=== PATIENT | female | born 1985 | race Caucasian/White ===

== ENCOUNTER → 2017-02-11 | Outpatient (CLI) | payer MEDICAID, OTHER ==
[2017-02-11 10:06] LABS: BASO % 0.4 % (0.0-1.0); EOS # 0.1 K/mm3 (0.0-0.50); LARGE UNSTAINED CELL # 0.1 K/mm3 (0.0-0.4); LARGE UNSTAINED CELL % 1.1 % (0.0-4.0); LYMPH # 1.6 K/mm3 (1.5-4.5); LYMPH % 15.8 % (24.0-44.0); MEAN CORPUSCULAR HEMOGLOBIN 32.1 pg (27.0-33.0); MEAN CORPUSCULAR HGB CONC 33.7 g/dl (32.0-36.5); MEAN CORPUSCULAR VOLUME 95.3 fl (80.0-96.0); MONO # 0.5 K/mm3 (0.0-0.8); MONO % 4.9 % (0.0-5.0); NEUTROPHILS # 7.2 K/mm3 (1.8-7.7); NEUTROPHILS % 76.8 % (36.0-66.0); PLATELET COUNT, AUTOMATED 276 k/mm3 (150-450); RED CELL DISTRIBUTION WIDTH 12.2 % (11.5-14.5); WHITE BLOOD COUNT 9.4 K/mm3 (4.0-10.0)
[2017-02-11 11:12] LABS: HBsAg Prenatal NEGATIVE (NEGATIVE)
== END ==
LOC: M LAB 09:28
PROVIDERS: ATTEND Advanced Practice Midwife
DX: Z34.81 Encounter for supervision of other normal pregnancy, first trimester (principal)

== ENCOUNTER → 2017-04-03 | Outpatient (CLI) | payer OTHER | LOC: M LAB 10:07 | PROVIDERS: ATTEND Obstetrics & Gynecology | DX: D64.9 Anemia, unspecified (principal) ==

== ENCOUNTER → 2017-04-16 | Outpatient (CLI) | payer OTHER ==
--- NOTE | 2017-04-17 06:21 | REP ---
Clinical: Anatomical evaluation. Comparison: None . Findings: Examination demonstrates a single live intrauterine in cephalic presentation. motion is identified by technologist. Placenta is noted anteriorly and grade zero without evidence for placenta previa or abruption. Placental lakes are identified along with suspected posterior succenturiate lobe. Amniotic fluid volume is normal. Cervix measures 4.0 cm in length and appears closed. No evidence for nuchal cord. Gestational age by LMP 18 weeks 6 days with JACKELYN 09/11/2017 . Gestational age by current measurements 18 weeks 5-day with JACKELYN 22 18 . FHR equals 128 beats per minute. BPD 4.2 cm 18 weeks 5 days HC 15.9 cm 18 weeks 5 days AC 13.4 cm 18 weeks 6 days FL 2.8 cm 18 weeks 4 days HL 2.7 cm 18 weeks 5 days HC/AC ratio 1.18 Estimated weight 254 grams ( 40th percentile). Anatomical assessment demonstrates normal structures including cranium, choroid plexus, cavum, cerebellum/posterior fossa, facial features, lungs, four-chamber heart, diaphragm, stomach, cord insertion, kidneys/bladder, spine, and extremities. Limited evaluation of the cardiac ventricular outflow tracts noted along with single umbilical artery. Impression: 1. Single live intrauterine in cephalic presentation demonstrating appropriate interval growth. 2. Placenta demonstrates multiple placental lakes and a suspected posterior succenturiate lobe but remains grade zero and without placenta previa. 3. Limited evaluation of the cardiac ventricular outflow tracts and single umbilical artery noted. Signed by Norris Martinez MD 04/17/2017 06:12 A
== END ==
LOC: M RAD 09:35
PROVIDERS: ATTEND Obstetrics & Gynecology
DX: Z36 Encounter for antenatal screening of mother (principal)

== ENCOUNTER → 2017-05-02 | Outpatient (CLI) | payer OTHER ==
--- NOTE | 2017-05-02 13:14 | REP ---
Obstetric sonography: History: Supervision of , followup anatomy. Comparison sonography April 16, 2017. Findings: Scanning through the gravid uterus demonstrates a viable single intrauterine gestation in a breech lie. motion is observed and heart rate is recorded at 142 beats per minute. An anterior grade 0 placenta is seen without evidence of previa. There appears to be a posterior succenturiate lobe . The amniotic fluid is subjectively normal. Closed cervical length measured transabdominally is 3.8 cm. No extrauterine abnormalities observed. There has been appropriate interval growth in the fetus. The umbilical cord is seen draping across the neck. A single umbilical artery umbilical cord is noted. No anomaly is seen. The following anatomic structures are identified and felt to be sonographically unremarkable: cranium, choroid plexus, cavum, cerebellum and posterior fossa, nuchal fold, face and profile, lungs, four-chamber heart, left and right ventricular outflow tract views, diaphragm, left-sided stomach, abdominal wall cord insertion, kidneys and bladder, spine, upper and lower extremities. Biometry chart: BPD 4.9 cm = 20 weeks 6 days Head circumference 19.0 cm = 21 weeks 2 days Abdominal circumference 16.6 cm = 21 weeks 4 days Femur length 3.4 cm = 20 weeks 5 days Humeral length 3.3 cm = 21 weeks 1 day Cerebellar diameter 2.3 cm = 21 weeks 3 days HC/AC ratio normal 1.14. Cephalic index normal 0.70. Estimated weight 407 grams, 0 pounds 14 ounces, 50th percentile for 21 weeks 1 day. Impression: Viable single intrauterine gestation at 21 weeks 1 day by today's composite sonographic criteria. Expected gestational age estimate based on prior sonography is 21 weeks 0 days. JACKELYN by prior sonography September 12, 2017. Single artery umbilical cord again noted. No anomalies seen. Signed by Yoan Guan MD 05/02/2017 05:10 P
== END ==
LOC: M RAD 08:59
PROVIDERS: ATTEND Obstetrics & Gynecology
DX: Z36.2 Encounter for other antenatal screening follow-up (principal)

== ENCOUNTER → 2017-05-16 | Outpatient (CLI) | payer OTHER ==
[2017-05-16 12:33] LABS: MEAN CORPUSCULAR HEMOGLOBIN 31.7 pg (27.0-33.0); MEAN CORPUSCULAR HGB CONC 33.6 g/dl (32.0-36.5); MEAN CORPUSCULAR VOLUME 94.2 fl (80.0-96.0); PLATELET COUNT, AUTOMATED 248 10^3/uL (150-450); RED CELL DISTRIBUTION WIDTH 11.8 % (11.5-14.5); WHITE BLOOD COUNT 14.5 10^3/uL (4.0-10.0)
== END ==
LOC: M LAB 10:50
PROVIDERS: ATTEND Obstetrics & Gynecology
DX: Z34.82 Encounter for supervision of other normal pregnancy, second trimester (principal)

== ENCOUNTER → 2017-05-30 | Outpatient (REF) | payer OTHER | LOC: M SFHCPLAZ 12:03 | PROVIDERS: ATTEND Nurse Practitioner Family | DX: J02.9 Acute pharyngitis, unspecified (principal) ==

== ENCOUNTER → 2017-07-17 | Outpatient (CLI) | payer OTHER ==
--- NOTE | 2017-07-17 10:07 | REP ---
Clinical: Growth evaluation. Comparison: 05/02/2017 . Findings: Examination demonstrates a single live intrauterine in cephalic presentation. motion is identified by technologist. Placenta is noted anteriorly and grade one without evidence for placenta previa or abruption. Amniotic fluid volume is normal. Gestational age by LMP 32 weeks 0 days with JACKELYN 09/11/2018 . Gestational age by current measurements 31 weeks 6 days with JACKELYN 09/12/2017 . FHR equals 133 beats per minute. BPD 8.2 cm 32 weeks 6 days HC 29.4 cm 32 weeks 4 days AC 26.9 cm 31 weeks 0 days FL 6.2 cm 32 weeks 2 days HL 5.2 cm 30 weeks 4 days HC/AC ratio 1.09 Estimated weight 1822 grams ( 37th percentile). Amniotic fluid index: 11.2 cm (a 0.6 - 24.2). Umbilical cord SD ratio: 2.67 (2.50 - 3.50). Impression: Single live intrauterine in cephalic presentation demonstrating appropriate interval growth. Signed by Norris Martinez MD 07/17/2017 09:59 A
== END ==
LOC: M RAD 09:04
PROVIDERS: ATTEND Advanced Practice Midwife
DX: Q27.0 Congenital absence and hypoplasia of umbilical artery (principal); Z3A.32 32 weeks gestation of pregnancy

== ENCOUNTER → 2017-08-07 | Outpatient (CLI) | payer OTHER | LOC: M RAD 09:04 | DX: Z36.89 Encounter for other specified antenatal screening (principal); Z3A.34 34 weeks gestation of pregnancy | CPT/HCPCS: 76816 ==

== ENCOUNTER → 2017-08-09 | Outpatient (REF) | payer OTHER | LOC: M LAB REF 16:22 | DX: J02.9 Acute pharyngitis, unspecified (principal) ==

== ENCOUNTER → 2017-08-13 | Outpatient (REF) | payer OTHER | LOC: M LAB REF 12:53 | DX: Z34.83 Encounter for supervision of other normal pregnancy, third trimester (principal) ==

== ENCOUNTER → 2017-08-28 | Outpatient (CLI) | payer OTHER | LOC: M RAD 08:59 | DX: O43.193 Other malformation of placenta, third trimester (principal); Q27.0 Congenital absence and hypoplasia of umbilical artery; Z3A.36 36 weeks gestation of pregnancy; O28.8 Other abnormal findings on antenatal screening of mother | CPT/HCPCS: 76816 ==

== ENCOUNTER 2017-09-07 18:31 | Inpatient (IN) | payer OTHER ==
[2017-09-07] MEDS ORDERED: OXYTOCIN 30 UNITS IN 0.9% NaCl 500ML IV BAG (J2590) As Ordered (18:56)
[2017-09-07] MEDS: LIDOCAINE 1% MDV INJ 50 ML VIAL INFIL (20:00)
[2017-09-07] MEDS ORDERED: METHYLERGONOVINE MALEATE 0.2 MG TAB PO (20:00)
[2017-09-07] MEDS ORDERED: DOCUSATE SODIUM 100 MG CAP PO (20:00)
[2017-09-07] MEDS ORDERED: MEASLES,MUMPS,RUBELLA VACCINE INJ (MMR-II) (90707) SC (20:00)
[2017-09-07] MEDS ORDERED: DIBUCAINE 1% OINTMENT 30GM TOP (20:00)
[2017-09-07] MEDS ORDERED: RHOGAM 300 MCG (1500 IU) INJ (J2790) IM (20:00)
[2017-09-07] MEDS ORDERED: ANUSOL HC CREAM 30GM TOP (20:00)
[2017-09-07] MEDS ORDERED: ACETAMINOPHEN 500 MG TAB PO (20:00)
[2017-09-07 20:18] LABS: HEMATOCRIT 34.3 % (36.0-47.0); HEMOGLOBIN 11.7 g/dl (12.0-16.0); MEAN CORPUSCULAR HEMOGLOBIN 31.2 pg (27.0-33.0); MEAN CORPUSCULAR HGB CONC 34.1 g/dl (32.0-36.5); MEAN CORPUSCULAR VOLUME 91.5 fl (80.0-96.0); PLATELET COUNT, AUTOMATED 258 10^3/uL (150-450); RED BLOOD COUNT 3.75 10^6/uL (4.00-5.40); RED CELL DISTRIBUTION WIDTH 12.2 % (11.5-14.5); WHITE BLOOD COUNT 14.8 10^3/uL (4.0-10.0)
[2017-09-07] MEDS: AMPICILLIN SOD/SULBACTAM SOD 3 GM in D5W MINI-BAG PLUS 100 ML IV (20:23)
[2017-09-07] MEDS: OXYTOCIN DRIP 30 UNITS in APPROPRIATE DILUENT 1 EA IV (20:23)
[2017-09-08] MEDS: IBUPROFEN 800 MG TAB PO ×2 (01:28→17:09)
[2017-09-08] MEDS: PRENATAL VITAMINS CHEWABLE TABLET PO (09:10)
[2017-09-09] MEDS: PRENATAL VITAMINS CHEWABLE TABLET PO (14:10)
== END 2017-09-09 20:35 | disposition home or self-care (01) | DRG 541 ==
LOC: M LDO 18:31 → M LDI 18:48 → M OBS 21:15
PROVIDERS: Advanced Practice Midwife
PROC: 10E0XZZ Delivery of Products of Conception, External Approach (ICD-10-PCS; principal; 2017-09-07)
PROC: 10D17Z9 Manual Extraction of Products of Conception, Retained, Via Natural or Artificial Opening (ICD-10-PCS; 2017-09-07)
PROC: 0HQ9XZZ Repair Perineum Skin, External Approach (ICD-10-PCS; 2017-09-07)
DX: O43.193 Other malformation of placenta, third trimester (principal); O99.820 Streptococcus B carrier state complicating pregnancy; Z37.0 Single live birth; Z3A.39 39 weeks gestation of pregnancy; Z91.040 Latex allergy status; O69.82X0 Labor and delivery complicated by other cord entanglement, without compression, not applicable or unspecified; O70.0 First degree perineal laceration during delivery

== ENCOUNTER → 2018-01-27 | Outpatient (REF) | payer OTHER ==
[2018-01-30 14:44] LABS: HPV HYBRID CAPTURE II Negative (Negative)
== END ==
LOC: M LAB REF 14:01
DX: Z12.4 Encounter for screening for malignant neoplasm of cervix (principal); R87.612 Low grade squamous intraepithelial lesion on cytologic smear of cervix (LGSIL)
CPT/HCPCS: 88142

== ENCOUNTER → 2018-05-14 | Outpatient (REF) | payer OTHER | LOC: M LAB REF 18:04 | DX: Z53.9 Procedure and treatment not carried out, unspecified reason (principal) ==

== ENCOUNTER → 2018-05-14 | Outpatient (REF) | payer OTHER | LOC: M LAB REF 18:06 | DX: N87.0 Mild cervical dysplasia (principal) | CPT/HCPCS: 88304 ==

== ENCOUNTER → 2018-05-20 | Outpatient (REF) | payer OTHER ==
[2018-05-20 12:29] LABS: FREE T4 0.91 NG/DL (0.76-1.46); TOTAL 25(OH) VITAMIN D 29.6 NG/ML (30.0-100.0)
== END ==
LOC: M SFHCPLAZ 09:48
DX: F34.1 Dysthymic disorder (principal)
CPT/HCPCS: 84443

== ENCOUNTER → 2019-03-24 | Outpatient (CLI) | payer OTHER ==
[~2019-03-24] MED LIST: IBUP-1114 PO; MAPA500T2 PO; PRENTAB9 PO
== END ==
LOC: M SMT 09:12
PROVIDERS: ATTEND Advanced Practice Midwife
DX: Z13.79 Encounter for other screening for genetic and chromosomal anomalies (principal)

== ENCOUNTER → 2019-03-24 | Outpatient (REF) | payer OTHER ==
[2019-03-27 14:09] LABS: HPV HYBRID CAPTURE II Positive (Negative)
== END ==
LOC: M LAB REF 13:41
PROVIDERS: ATTEND Advanced Practice Midwife
DX: Z12.4 Encounter for screening for malignant neoplasm of cervix (principal)

== ENCOUNTER → 2019-09-21 | Outpatient (REF) | payer OTHER ==
[2019-09-21 17:11] LABS: INFLUENZA A AMPLIFICATION NEGATIVE (NEGATIVE); INFLUENZA B AMPLIFICATION NEGATIVE (NEGATIVE)
== END ==
LOC: M LAB REF 16:17
PROVIDERS: ATTEND Physician Assistant Medical
DX: J11.1 Influenza due to unidentified influenza virus with other respiratory manifestations (principal)

== ENCOUNTER → 2020-08-26 | Outpatient (REF) | payer OTHER ==
[2020-08-26 11:07] LABS: ALBUMIN 3.9 GM/DL (3.2-5.2); ALT/SGPT 19 U/L (12-78); BILIRUBIN,TOTAL 0.5 MG/DL (0.2-1.0); BLOOD UREA NITROGEN 12 MG/DL (7-18); CALCIUM LEVEL 9.1 MG/DL (8.5-10.1); CARBON DIOXIDE LEVEL 30 MEQ/L (21-32); CHLORIDE LEVEL 103 MEQ/L (98-107); FREE T4 0.96 NG/DL (0.76-1.46); GLOMERULAR FILTRATION RATE > 60.0 (>60); GLUCOSE, FASTING 91 MG/DL (70-100); POTASSIUM SERUM 4.4 MEQ/L (3.5-5.1); SODIUM LEVEL 139 MEQ/L (136-145); TOTAL PROTEIN 7.1 GM/DL (6.4-8.2)
[2020-08-26 11:08] LABS: VITAMIN B12 LEVEL 451 PG/ML
[2020-08-26 11:09] LABS: FOLATE 16.8 NG/ML
== END ==
LOC: M SFHCPLAZ 08:55
PROVIDERS: ATTEND Nurse Practitioner Family
DX: F41.1 Generalized anxiety disorder (principal); R53.83 Other fatigue

== ENCOUNTER → 2020-12-06 | Outpatient (REF) | payer OTHER | LOC: M SFHCWAGY 12:52 | PROVIDERS: ATTEND Advanced Practice Midwife | DX: Z12.4 Encounter for screening for malignant neoplasm of cervix (principal); R87.610 Atypical squamous cells of undetermined significance on cytologic smear of cervix (ASC-US) ==

== ENCOUNTER → 2021-01-12 | Outpatient (REF) | payer OTHER | LOC: M SFHCPLAZ 15:50 | PROVIDERS: ATTEND Nurse Practitioner Family | DX: E55.9 Vitamin D deficiency, unspecified (principal) ==

== ENCOUNTER → 2021-02-15 | Outpatient (REF) | payer OTHER ==
[~2021-02-15] MED LIST changes: +ESCI5SOL3 PO; +ISIB1TAB PO; +VITAD400CA PO; +VITMTA PO
== END ==
LOC: M SFHCWAGY 13:15
PROVIDERS: ATTEND Obstetrics & Gynecology
DX: R87.610 Atypical squamous cells of undetermined significance on cytologic smear of cervix (ASC-US) (principal)

== ENCOUNTER → 2021-02-24 | Outpatient (CLI) | payer OTHER | LOC: M LABSMTC 10:00 | PROVIDERS: ATTEND Anesthesiology | DX: Z01.812 Encounter for preprocedural laboratory examination (principal) ==

== ENCOUNTER 2021-03-01 07:02 | Day surgery (SDC) | payer OTHER ==
[~2021-03-01] VITALS: Ht 165.1 cm; Wt 63.0 kg
[2021-03-01 08:06] LABS: HCG, SERUM QUALITATIVE NEGATIVE (NEGATIVE)
[2021-03-01 08:11] LABS: HEMATOCRIT 37.5 % (36.0-47.0); HEMOGLOBIN 12.2 g/dl (12.0-15.5)
[2021-03-01] MEDS ORDERED: MIDAZOLAM INJ 2MG/2ML VIAL (J2250 PER 1MG) As Ordered ONE (08:35)
[2021-03-01] MEDS ORDERED: fentaNYL 100 MCG/2 ML INJECTION (J3010) As Ordered ONE ×2 (08:36→10:12)
[2021-03-01] MEDS ORDERED: LIDOCAINE W/EPINEPHRINE 1% 20ML VIAL As Ordered ONE (08:41)
[2021-03-01] MEDS ORDERED: BUPIVACAINE HCL 0.25% 30ML VIAL As Ordered ONE (08:41)
[2021-03-01] MEDS ORDERED: COLA100C5 PO (08:43)
[2021-03-01] MEDS ORDERED: OXYC1TAB23 PO (08:43)
[2021-03-01] MEDS ORDERED: IBUP80TA PO (08:43)
[2021-03-01] MEDS ORDERED: ACETAMINOPHEN 1000MG 100ML IV BTL (OFIRMEV) (J0131 PER 10MG) As Ordered ONE (09:14)
[2021-03-01] MEDS ORDERED: dexameTHASONE 4 MG/ML 1ML VIAL (J1100 PER 1MG) As Ordered ONE (09:15)
[2021-03-01] MEDS ORDERED: propofoL 200 MG/20 ML VIAL As Ordered ONE ×2 (09:15→10:11)
[2021-03-01] MEDS ORDERED: ONDANSETRON 4MG/2ML VIAL As Ordered ONE (09:15)
[2021-03-01] MEDS ORDERED: KETOROLAC 60MG 2ML VIAL As Ordered ONE (09:15)
[2021-03-01] MEDS ORDERED: METOCLOPRAMIDE INJ 10MG/2ML VIAL (J2765 PER 1) As Ordered ONE (09:15)
[2021-03-01] MEDS ORDERED: ROCURONIUM BROMIDE 50 MG/5 ML VIAL As Ordered ONE (09:15)
[2021-03-01] MEDS ORDERED: SUGAMMADEX SODIUM 500 MG/5 ML VIAL (BRIDION) As Ordered ONE (09:16)
[2021-03-01] MEDS ORDERED: IODINE STRONG SOLN 15 ML BTL As Ordered ONE (09:20)
[2021-03-01] MEDS ORDERED: GLYCOPYRROLATE INJ 0.2 MG/ML 2 ML VIAL As Ordered ONE (09:36)
[2021-03-01] MEDS ORDERED: LR 1,000 ML IV SCH (10:55)
[2021-03-01] MEDS ORDERED: ONDANSETRON 4MG/2ML VIAL IV PRN (10:55)
[2021-03-01] MEDS ORDERED: oxyCODONE 5MG TAB PO PRN (10:55)
[2021-03-01] MEDS ORDERED: fentaNYL 100 MCG/2 ML INJECTION (J3010) IV PRN (10:55)
[2021-03-01 12:10] VITALS: BP 105/55
--- NOTE | 2021-03-01 12:33 | RO ---
OPERATIVE NOTE DATE OF OPERATION: 03/01/2021 PREOPERATIVE DIAGNOSIS: 1. Satisifed parity. 2. ALEXIS 2-3. POSTOPERATIVE DIAGNOSIS: 1. Satisifed parity. 2. ALEXIS 2-3. OPERATION PERFORMED: Laparoscopic bilateral salpingectomy and LEEP. SURGEON: Chastity Goldman M.D. MECHANICAL SYSTEM TECHNICIAN: Defence Intelligence Analyst ANESTHESIA: INDICATION FOR OPERATION: Chandrakant is a 35-year-old, G2, P2, who has ALEXIS 2-3 based on recent colposcopy as well as satisfied parity desiring permanent sterilization. She was counseled in the office for treatment of the ongoing cervical dysplasia and desired definitive treatment wth the LEEP and given that she had desire for permanent sterilization, we determined to do the two procdures together. She was counseled on all options for contraception and she desired to proceed with the pemanent sterilization. MATERIAL FORWARDED TO THE LAB: 1. Umbilical mole. 2. Fallopian tubes bilateral. 3. LEEP. DESCRIPTION OF FINDINGS: Uterus sounded to 8 cm. Laparoscopic findings included a normal appearing liver edge, gallbladder, uterus, fallopian tubes, ovaries and appendix. The pelvis was normal in appearance with no evidence of endometriosis. The cervix had a central nonstained portion when Lugol's solution was applied. INFECTION CLASSIFICATION: 2. ESTIMATED BLOOD LOSS: 10 mL IV FLUIDS: 900 mL of lactated Ringer's. URINE OUTPUT: 700 mL of yellow clear urine. DESCRIPTION OF OPERATION: After obtaining informed consent, the patient was taken to the operating room. General endotracheal anesthesia was established. She was placed in low lithotomy position. She was prepped and draped in the usual sterile fashion. She was placed in Trendelenburg position. A Zeng catheter was placed. A bivalve speculum was placed in the vagina and visualization of the cervix was obtained. The uterus sounded to 8 cm. The [employer] uterine manipulator was placed through the the cervix into the uterus and the speculum was then removed. The patient was taken out of Trendelenburg position. At the area where I was intending to make my incision in the infraumbilical fold, I noted a very small subcentimeter, hyperpigmented area consistent with a mold which I made a small ellipse around and sent off to pathology. This was done so that patient would never have any issues in the future of development to cancerous lesions in an area where she would not be able to observe. The incision was made into 5 mm and a Michela clamp was used to divide the subcutaneous tissue. The lower abdominal wall was manually grabbed and lifted up and an OptiView trocar was placed at a 90 degree angle. Laparsocope was advanced through the port and intra-abdominal placement was confirmed without injury noted below the point of entry. Continuous flow carbon dioxide began to establish a pneumoperitoneum at 15 mmHg pressure. At that point, two more incisions were made on the side of the abdomen, one in the left lower quadrant, one in the left upper quadrant. These were 5 mm in size, anesthetized with 1/4% Marcaine before all of the incisions were made and 5 mm trocars were placed under direct visualization after the 5 mm incisions were created. Pelvic and abdominal surveys were conducted beginning in the anterior cul-de-sac and anerior portion of the uterus which were normal in appearance. Left and right fallopian tubes, round ligaments, broad ligaments and ovaries were observed with normal appearance. The posterior cul-de-sac was observed to be nromal. There was no evidence of any endometriosis. A survey of upper abdomen revealed normal appearing appendix, liver edge and gallbladder. At that point, the salpingectomy was performed first on the right fallopian tube followed by the left using a LigaSure device, undermining the fallopian tube very close along the tube and avoiding the ovary in proximity. The fallopian tube was excised all the way down to its connection to the uterus and the right fallopian tube was placed in the anterior cul-de-sac and after excising the left fallopian tube, they were both pulled out, first one and then the other through one of the 5 mm ports. These were sent off to pathology. There was absolutely no bleeding noted. Complete hemostasis was assured and at that point, the left lateral ports were removed under direct visualization. They were observed to be hemostatic. The pneumoperitoneum was then released prior to removal of the umbilical port. Incisions were reapproximated with 4-0 Monocryl and Dermabond. The patient was returned to the supine position. At that point, we transitioned to the LEEP procedure and a coated speculum was inserted into the vagina. The Hul[employer] uterine manipuolator was removed. Lugol's solution was applied to the cervix and there was a small central nonstaining portion noted on the cervix. 1% lidocaine with epinephrine was injected in an intracervical block, approximately 10 mL. A LEEP was performed in one pass, obtaining all of the nonstaining portion of the central cervix and then roller ball cautery was used to coagulate all over the LEEP bed and assured complete hemostasis. Finally Monsel solution was applied to the whole LEEP bed and again hemostasis was noted. There was nothing retained in the vagina. The speculum was removed and the patient was awakened from general anesthesia and taken to the recovery room. She tolerated the procedure well. All counts were correct x2.
== END 2021-03-01 12:12 | disposition home or self-care (01) ==
LOC: M SDC 07:02
PROVIDERS: ATTEND Obstetrics & Gynecology
DX: Z30.2 Encounter for sterilization (principal); N87.1 Moderate cervical dysplasia; F41.9 Anxiety disorder, unspecified; D22.5 Melanocytic nevi of trunk; R51.9 Headache, unspecified; F12.10 Cannabis abuse, uncomplicated; Z87.891 Personal history of nicotine dependence; Z91.040 Latex allergy status; Z79.899 Other long term (current) drug therapy
CPT/HCPCS: 36415; 57522; 58661; 84703; 85014; 85018; 86850; 86900; 86901; 88302; 88305; 88307; J0131; J1100; J1885; J2250; J2405; J2765; J3010

== ENCOUNTER → 2021-10-23 | Outpatient (CLI) | payer OTHER ==
[~2021-10-23] MED LIST changes: +COLA100C5 PO; +IBUP80TA PO; +OXYC1TAB23 PO
[2021-10-23 16:09] LABS: BASO # 0.1 10^3/uL (0.0-0.2); BASO % 0.4 % (0.0-1.0); EOS # 0.2 10^3/uL (0.0-0.5); EOS % 1.2 % (0.0-3.0); HEMATOCRIT 38.3 % (36.0-47.0); HEMOGLOBIN 12.4 g/dl (12.0-15.5); LYMPH # 2.9 10^3/uL (1.5-5.0); LYMPH % 21.2 % (24.0-44.0); MEAN CORPUSCULAR HEMOGLOBIN 31.3 pg (27.0-33.0); MEAN CORPUSCULAR HGB CONC 32.4 g/dl (32.0-36.5); MEAN CORPUSCULAR VOLUME 96.7 fl (80.0-96.0); MONO # 0.6 10^3/uL (0.0-0.8); MONO % 4.5 % (2.0-8.0); NEUTROPHILS # 9.7 10^3/uL (1.5-8.5); NEUTROPHILS % 72.3 % (36.0-66.0); PLATELET COUNT, AUTOMATED 346 10^3/uL (150-450); RED BLOOD COUNT 3.96 10^6/uL (4.00-5.40); WHITE BLOOD COUNT 13.4 10^3/uL (4.0-10.0)
[2021-10-23 16:39] LABS: ALT/SGPT 20 U/L (12-78); BILIRUBIN,TOTAL 0.3 MG/DL (0.2-1.0); BLOOD UREA NITROGEN 14 MG/DL (7-18); CALCIUM LEVEL 9.3 MG/DL (8.5-10.1); CARBON DIOXIDE LEVEL 29 MEQ/L (21-32); CHLORIDE LEVEL 107 MEQ/L (98-107); CREATININE FOR GFR 0.99 MG/DL (0.55-1.30); FREE T4 0.74 NG/DL (0.76-1.46); GLOMERULAR FILTRATION RATE > 60.0 (>60); GLUCOSE, FASTING 130 MG/DL (70-100); SODIUM LEVEL 141 MEQ/L (136-145); THYROID STIMULATING HORMONE 0.762 uIU/ML (0.358-3.740); TOTAL PROTEIN 7.5 GM/DL (6.4-8.2)
[2021-10-23 16:40] LABS: TOTAL 25(OH) VITAMIN D 33.9 NG/ML (30.0-100.0)
== END ==
LOC: M PLALAB 12:59
PROVIDERS: ATTEND Physician Assistant
DX: F41.1 Generalized anxiety disorder (principal)

== ENCOUNTER → 2022-04-19 | Outpatient (CLI) | payer OTHER ==
[2022-04-19 13:54] LABS: BASO % 0.3 % (0.0-1.0); EOS # 0.1 10^3/uL (0.0-0.5); EOS % 0.8 % (0.0-3.0); HEMATOCRIT 38.3 % (36.0-47.0); HEMOGLOBIN 12.3 g/dl (12.0-15.5); LYMPH # 2.5 10^3/uL (1.5-5.0); LYMPH % 16.6 % (24.0-44.0); MEAN CORPUSCULAR HEMOGLOBIN 31.6 pg (27.0-33.0); MEAN CORPUSCULAR HGB CONC 32.1 g/dl (32.0-36.5); MEAN CORPUSCULAR VOLUME 98.5 fl (80.0-96.0); MONO # 1.2 10^3/uL (0.0-0.8); MONO % 7.7 % (2.0-8.0); NEUTROPHILS # 11.2 10^3/uL (1.5-8.5); NEUTROPHILS % 74.2 % (36.0-66.0); PLATELET COUNT, AUTOMATED 278 10^3/uL (150-450); RED BLOOD COUNT 3.89 10^6/uL (4.00-5.40); WHITE BLOOD COUNT 15.1 10^3/uL (4.0-10.0)
[2022-04-19 14:39] LABS: FREE T4 0.77 NG/DL (0.76-1.46); THYROID STIMULATING HORMONE 1.15 uIU/ML (0.358-3.740)
== END ==
LOC: M PLALAB 11:25
PROVIDERS: ATTEND Physician Assistant
DX: R79.89 Other specified abnormal findings of blood chemistry (principal)

== ENCOUNTER → 2022-06-19 | Outpatient (CLI) | payer OTHER ==
[2022-06-19 11:02] LABS: BASO # 0.1 10^3/uL (0.0-0.2); BASO % 0.4 % (0.0-1.0); EOS # 0.3 10^3/uL (0.0-0.5); EOS % 2.5 % (0.0-3.0); HEMATOCRIT 36.7 % (36.0-47.0); HEMOGLOBIN 11.9 g/dl (12.0-15.5); LYMPH # 2.7 10^3/uL (1.5-5.0); LYMPH % 24.4 % (24.0-44.0); MEAN CORPUSCULAR HEMOGLOBIN 31.5 pg (27.0-33.0); MEAN CORPUSCULAR HGB CONC 32.4 g/dl (32.0-36.5); MEAN CORPUSCULAR VOLUME 97.1 fl (80.0-96.0); MONO # 0.9 10^3/uL (0.0-0.8); NEUTROPHILS # 7.2 10^3/uL (1.5-8.5); NEUTROPHILS % 64.4 % (36.0-66.0); PLATELET COUNT, AUTOMATED 351 10^3/uL (150-450); RED BLOOD COUNT 3.78 10^6/uL (4.00-5.40); WHITE BLOOD COUNT 11.1 10^3/uL (4.0-10.0)
== END ==
LOC: M PLALAB 08:41
PROVIDERS: ATTEND Physician Assistant
DX: D72.829 Elevated white blood cell count, unspecified (principal)

== ENCOUNTER → 2024-12-04 | Outpatient (CLI) | payer OTHER ==
[2024-12-04 10:48] LABS: BASO # 0.1 10^3/uL (0.0-0.2); BASO % 0.7 % (0.0-1.0); EOS # 0.3 10^3/uL (0.0-0.5); EOS % 3.8 % (0.0-3.0); HEMATOCRIT 36.8 % (36.0-47.0); HEMOGLOBIN 11.8 g/dl (12.0-15.5); LYMPH # 2.8 10^3/uL (1.5-5.0); LYMPH % 33.5 % (24.0-44.0); MEAN CORPUSCULAR HEMOGLOBIN 31.3 pg (27.0-33.0); MEAN CORPUSCULAR HGB CONC 32.1 g/dl (32.0-36.5); MEAN CORPUSCULAR VOLUME 97.6 fl (80.0-96.0); MONO % 11.8 % (2.0-8.0); NEUTROPHILS # 4.2 10^3/uL (1.5-8.5); PLATELET COUNT, AUTOMATED 300 10^3/uL (150-450); RED BLOOD COUNT 3.77 10^6/uL (4.00-5.40); WHITE BLOOD COUNT 8.4 10^3/uL (4.0-10.0)
[2024-12-04 10:50] LABS: ALBUMIN 3.7 G/DL (3.2-5.2); ALKALINE PHOSPHATASE 68 U/L (35-104); ALT/SGPT 24 U/L (7.0-40); AST/SGOT 22 U/L (<34); BILIRUBIN,TOTAL 0.3 MG/DL (0.3-1.2); BLOOD UREA NITROGEN 9 MG/DL (9-23); CARBON DIOXIDE LEVEL 29 MMOL/L (20-31); CHLORIDE LEVEL 105 MMOL/L (98-107); CHOLESTEROL LEVEL 181 MG/DL (<200); CREATININE FOR GFR 0.68 MG/DL (0.55-1.30); GLOMERULAR FILTRATION RATE > 90.0 (>60); GLUCOSE, FASTING 87 MG/DL (60-100); HDL CHOLESTEROL 54.7 MG/DL (>40); LDL CHOLESTEROL 103.9 MG/DL (<100); NON-HDL-C 126.3 MG/DL; POTASSIUM SERUM 4.5 MMOL/L (3.5-5.1); SODIUM LEVEL 139 MMOL/L (136-145); TOTAL PROTEIN 6.7 G/DL (5.7-8.2); TRIGLYCERIDES LEVEL 112 MG/DL (<150)
[2024-12-04 10:52] LABS: FREE T4 0.96 NG/DL (0.89-1.76); THYROID STIMULATING HORMONE 3.704 uIU/ML (0.55-4.78)
[2024-12-04 11:08] LABS: HEMOGLOBIN A1c 5.5 % (4.0-6.0)
== END ==
LOC: M PLALAB 08:11
PROVIDERS: ATTEND Physician Assistant
DX: Z00.00 Encounter for general adult medical examination without abnormal findings (principal); F41.1 Generalized anxiety disorder; Z13.220 Encounter for screening for lipoid disorders; Z68.26 Body mass index [BMI] 26.0-26.9, adult